=== PATIENT | female | born 1995 | race Two or more races ===

== ENCOUNTER → 2018-06-23 | Outpatient (CLI) | payer MEDICAID ==
[~2018-06-23] MED LIST: CEPH-37 PO
== END | disposition home or self-care (01) ==
LOC: Rad HDHVI 14:01
PROVIDERS: ATTEND Internal Medicine
DX: R06.02 Shortness of breath (principal); R06.09 Other forms of dyspnea; R42 Dizziness and giddiness
CPT/HCPCS: 93306

== ENCOUNTER → 2018-07-09 | Outpatient (CLI) | payer MEDICAID ==
[~2018-07-09] VITALS: Ht 162.6 cm; Wt 92.1 kg
[~2018-07-09] MED LIST changes: +ADENOSINE 77 MG in GIVE UN-DILUTED 0 ML IV ONE; +ADENOSINE 90 MG/30 ML INJ IV ONE
== END | disposition home or self-care (01) ==
LOC: Rad HDHVI 13:54
PROVIDERS: ATTEND Internal Medicine
DX: I10 Essential (primary) hypertension (principal); I25.10 Atherosclerotic heart disease of native coronary artery without angina pectoris
CPT/HCPCS: 78452; 93005; 96374; 96375; A9500; J0153